=== PATIENT | female | born 1955 | race Caucasian/White ===

== ENCOUNTER 2024-04-02 14:35 | Emergency (ER) | payer MEDICARE, BC, SELFPAY ==
[2024-04-02 14:35] VITALS: BMI 28.1
[2024-04-02 14:40] VITALS: BP 133/78; PULSE 85; RESP 16; TEMP 36.8; O2SAT 99
--- NOTE | 2024-04-02 16:04 | XR_ITS ---
Examination: Knee, left , 3 views Technique: Knee AP, lateral, oblique 3 views Date and time of exam: April 02, 2024 1611 hrs. Indications: Injury to the knee today, knee pain. Findings: Comminuted acute fractures proximal tibia which extends to the lateral tibial plateau Minimal depression lateral tibial plateau Blood in the joint space Impression: Acute comminuted fractures proximal tibia extending to the tibial plateau laterally Recommend CT scan knee without contrast follow-up
--- NOTE | 2024-04-02 16:04 | XR_ITS ---
Examination: Shoulder,left, 3 views Technique: Shoulder AP internal rotation, AP external rotation, Y view shoulder, 3 views Exam date and time :April 02, 2024 1611 hrs. Indications: Injury to the shoulder today, shoulder pain. Findings: No shoulder fracture or dislocation No foreign body Impression: No shoulder fracture or dislocation
--- NOTE | 2024-04-02 16:49 | PD.EDLOWEX ---
Lower Extremity Injury RME/HPI General Chief Complaint: Extremity Injury, Lower Stated Complaint: LEFT KNEE INJURY TODAY Time Seen by Provider: 04/02/24 15:41 Source: patient and family Arrival date/time: 04/02/24 14:35 This is a 69-year-old female who presented to the emergency department with acute left knee pain status post a ground-level fall. Patient reports she was attempting to walk into the doorway when she did not noticed any within board on the floor causing her to fall forward landing on her left knee. Reports immediate pain to her left knee also hitting her left forearm. Reports immediately was unable to bear weight on the left knee due to pain prompting her ED visit today. Mode of arrival: ambulatory Related Data Home Medications ?Medication ?Instructions ?Recorded ?Confirmed atorvastatin 10 mg tablet (Lipitor) 10 mg PO QDAY 11/15/17 11/15/17 metformin 500 mg tablet,extended 500 mg PO QDAY 11/15/17 11/15/17 release 24 hr turmeric root extract 1,053 mg 1,053 mg PO QDAY 11/15/17 11/15/17 tablet vitB2 1.7 mg-niacin 20 mg-B6 2 1 ml QDAY 11/15/17 11/15/17 mg-B12 1.2 mg/mL-dexpan sublingual liqd (B Complex) Previous Rx's ?Medication ?Instructions ?Recorded meclizine 25 mg tablet See Rx Instructions .Route 11/15/17 .COMPLEX #30 tabs hydrocodone 5 mg-acetaminophen 325 1 tab PO Q6H PRN pain #14 tabs 11/30/22 mg tablet ibuprofen 600 mg tablet 600 mg PO Q6H PRN pain #30 tabs 11/30/22 hydrocodone 5 mg-acetaminophen 325 1 tab PO Q6H PRN pain #10 tabs 04/02/24 mg tablet Allergies Allergy/AdvReac Type Severity Reaction Status Date / Time No Known Allergies Allergy Verified 04/02/24 14:38 Review of Systems Review of Systems Systems Reviewed: All systems reviewed, normal except as documented Narrative Review of Systems: Gen: No fever, no chills, no weight loss EYES: No discharge, no visual changes, no pain HEENT: No ear pain, no congestion, no sore throat PULM: No shortness of breath, no cough, no congestion CV: No chest pain, no dyspnea on exertion, no palpitations GI: No nausea, no vomiting, no diarrhea, no pain, no constipation : No frequency, no urgency,? no dysuria Musc/skel:left knee and shoulder pain, no back pain Neuro: No weakness, no headache ED Exam Narrative Physical exam: General: Sittiing in Exam table in no acute distress, answering questions appropriately HENT: normocephalic, atraumatic, EOMI, PERRLA, moist mucous membranes Chest: chest wall is nontender Cardiac: regular rate and rhythm, normal S1 and S2, no murmurs, rubs, or gallops, capillary refill ?2 seconds Pulmonary: clear to auscultation bilaterally, no wheezing, crackles, or rhonchi Abdominal: active bowel sounds, soft, nontender, nondistended Neuro: A&OX3, CN II-XII intact, sensation grossly intact bilaterally in UE and LE. Skin: no rashes, no ecchymosis Ext: +left knee ecchymosis anterior swelling, tenderness to palpation Course Quality Measures none Orders Category Date Time Status Crutches .NOW Care 04/02/24 17:03 Completed Splint / Immobilizer STAT Care 04/02/24 17:03 Completed Consult to Orthopedic Stat Cons 04/02/24 17:50 Ordered XR knee LT 3V Stat Exams 04/02/24 16:04 Completed XR shoulder LT min 2V Stat Exams 04/02/24 16:04 Completed Vital Signs Vital signs: Vital Signs Temperature 98.3 F 04/02/24 14:40 Pulse Rate 85 04/02/24 14:40 Respiratory Rate 16 04/02/24 14:40 Blood Pressure 133/78 H 04/02/24 14:40 Pulse Oximetry (%) 99 04/02/24 14:40 Oxygen Delivery Method Room Air 04/02/24 14:40 Extremity Injury, Lower MDM Narrative MDM Narrative:: Healthy 69-year-old female presented to the emergency department with acute left knee pain. Injury sustained after a mechanical fall. X-ray did reveal a acute fracture of the tibia extending into her tibial plateau of her left extremity. I did contact the on-call orthopedic [phone] with Dr. Lewis on-call orthopedic who will gladly see patient in his office on Wednesday at 3 PM patient will be discharged home with a splint and knee brace. Patient data External records reviewed:: [facility] previous records Clinical information provided by:: patient Social determinants that could affect healthcare access:: none Patient has the following chronic illnesses:: none How is presenting disease/condition affected by chronic disease/condition?: no chronic disease Evaluation data The following diagnostics were reviewed and interpreted by me:: radiology exam(s) Lab and/or radiology exams considered but not ordered:: Not applicable Interpretation Summary: Examination: Shoulder,left, 3 views Technique: Shoulder AP internal rotation, AP external rotation, Y view shoulder, 3 views Exam date and time :April 02, 2024 1611 hrs. Indications: Injury to the shoulder today, shoulder pain. Findings: No shoulder fracture or dislocation No foreign body Impression: No shoulder fracture or dislocation Examination: Knee, left , 3 views Technique: Knee AP, lateral, oblique 3 views Date and time of exam: April 02, 2024 1611 hrs. Indications: Injury to the knee today, knee pain. Findings: Comminuted acute fractures proximal tibia which extends to the lateral tibial plateau Minimal depression lateral tibial plateau Blood in the joint space Impression: Acute comminuted fractures proximal tibia extending to the tibial plateau laterally Recommend CT scan knee without contrast follow-up Medications / Prescriptions Medications or Prescriptions considered but not ordered:: None Medication administrations:: None Consultations Consultation(s) initiated? (list below): No Diagnosis Extremity Injury, Lower Differential Diagnosis: other Most likely diagnosis given after review of the tests above:: Closed Fracture of the knee region Admission Indicated Admission indicated?: not indicated Explain why admission is indicated or not indicated:: None Admission Request Was there a request for admission?: No Disposition Plan Disposition Plan: Discharge Discharge Attestation Discharge Attestation: The patient and all family members were given an opportunity to ask questions and understood the discharge instructions. Discharge instructions specifically effects, indications for sooner follow up or return to the emergency department, and the expected course of current diagnosis. Patient condition: Stable Discharge Plan Plan Patient Disposition: HOME (Self Care) Patient condition on transfer: Stable Prescriptions/Referrals Prescriptions/Med Rec: New hydrocodone-acetaminophen 5-325 mg tablet 1 tab PO Q6H MDD 3 PRN (Reason: pain) Qty: 10 0RF No Action atorvastatin [Lipitor] 10 mg Tablet 10 mg PO QDAY metformin 500 mg Tablet Extended Release 24 Hr 500 mg PO QDAY vit [id number] [B Complex] 1.7-20-2-1.2 mg/mL Liquid 1 ml QDAY turmeric root extract 1,053 mg Tablet 1,053 mg PO QDAY meclizine 25 mg tablet See Rx Instructions .ROUTE .COMPLEX Qty: 30 0RF Rx Instructions: 1-2 tablets by mouth can be taken twice daily or 3 times daily as needed for vertigo hydrocodone-acetaminophen 5-325 mg tablet 1 tab PO Q6H MDD 4 PRN (Reason: pain) Qty: 14 0RF ibuprofen 600 mg tablet 600 mg PO Q6H PRN (Reason: pain) Qty: 30 0RF Referrals: Colt (PCP)Chance MD [Primary Care Provider] - In 1 week Daniel Lewis MD [Physician] - In 1 week Problem List Clinical Impression: Closed fracture of knee region Patient/Caregiver Discharge Instructions Discharge Activity: activity as tolerated Education Materials: ED Fracture, Knee Additional Instructions: - Your x-ray does not demonstrate any fracture. You are to wear the knee brace and use crutches. -I was able to get you an appointment with Dr. Lewis orthopedic here in [place] Wednesday at 3 PM Medications for pain were sent to the pharmacy. Return to the emergency department this any worsening symptoms or change in condition. Print Language: Trinidadian Stand Alone Forms: Katt Award Info., Work/School Release, Patient Portal Info Letter PA/ERICK Supervising Physician PA/ERICK Supervising Physician: Dr Ferrer
[2024-04-02 17:12] VITALS: BP 119/77; PULSE 79; RESP 18; TEMP 37.1; O2SAT 97
== END 2024-04-02 18:55 | disposition home or self-care (01) ==
PROVIDERS: Emergency Provider Emergency Medicine; PCP Family Medicine
DX: S82.252A Displaced comminuted fracture of shaft of left tibia, initial encounter for closed fracture (principal); W18.30XA Fall on same level, unspecified, initial encounter; M25.512 Pain in left shoulder
CPT/HCPCS: 73030; 73562; 99283

== ENCOUNTER → 2024-05-16 | Outpatient (CLI) | payer MEDICARE, BC, SELFPAY ==
--- NOTE | 2024-05-16 09:19 | XR_ITS ---
Examination: Knee, left , 3 views Technique: Knee AP, lateral, oblique 3 views Date and time of exam: May 16, 2024 0924 hrs. Indications: Acute fracture proximal tibia extending to the lateral tibial plateau on plain films April 02, 2024, postop reduction internal fixation tibial fracture Findings: Postop reduction internal fixation fracture proximal tibia including the proximal medial tibial metaphyseal region and below the intercondylar spines extending to the lateral tibial plateau Satisfactory alignment Orthopedic hardware satisfactory position Impression: Postop reduction internal fixation fracture proximal tibia with satisfactory alignment
== END | disposition home or self-care (01) ==
LOC: CDIM 09:08
PROVIDERS: PCP Family Medicine; Referring Provider Orthopaedic Surgery; Visit Provider Orthopaedic Surgery
DX: S82.142D Displaced bicondylar fracture of left tibia, subsequent encounter for closed fracture with routine healing (principal); X58.XXXD Exposure to other specified factors, subsequent encounter
CPT/HCPCS: 73562

== ENCOUNTER → 2024-06-06 | Outpatient (CLI) | payer MEDICARE, BC, SELFPAY ==
--- NOTE | 2024-06-06 14:20 | XR_ITS ---
Examination: Bone densitometry Date and time of exam:June 06, 2024 1441 hours INDICATIONS: Menopause age 53, history postmenopausal humerus patella tibia fractures, family history, mother, osteoporosis, personal history osteopenia Technique: Lumbar spine and hip total bone mineralization values of an calculated. Peak reference and age match control results have been displayed. Findings: Lumbar spine total bone mineralization is1.065 gm/cm2. This is 0.2 standard deviations above peak reference. This is 2.1 standard deviations above age-matched controls. Hip total bone mineralization is 0.834 gm/cm2 This is 0.9 standard deviations below peak reference. This is 0.5 standard deviations above age-matched controls Impression: There is normal mineralization based on lumbar spine measurements. There is osteopenia based on hip measurements Lumbar mineralization is decreased 4.1% compared with August 03, 2017 Hip mineralization is increase 6.5% compared with August 03, 2017
== END | disposition home or self-care (01) ==
LOC: CDIM 13:54
PROVIDERS: Referring Provider Family Medicine; Visit Provider Family Medicine
DX: M85.89 Other specified disorders of bone density and structure, multiple sites (principal)
CPT/HCPCS: 77080

== ENCOUNTER → 2024-09-07 | Outpatient (CLI) | payer MEDICARE, BC, SELFPAY ==
[2024-09-07 10:50] LABS: Basophils # (Auto) 0.1 Thou/mm3 (0.0-0.2); Basophils % (Auto) 1 % (0-2.5); Eosinophils # (Auto) 0.2 Thou/mm3 (0.0-0.5); Eosinophils % (Auto) 4 % (0-10); Hematocrit 38.5 % (36.0-46.0); Hemoglobin 12.5 g/dL (12.0-16.0); Immature Granulocytes % (Auto) 0 % (0-0); Immature Granulocytes Auto 0.02 Thou/mm3 (0.00-0.00); Lymphocytes # (Auto) 1.4 Thou/mm3 (1.0-4.8); Lymphocytes % (Auto) 26 % (10-50); Mean Corpuscular HGB Conc 32.5 g/dl (31.0-37.0); Mean Corpuscular Hemoglobin 28.6 pg (25.0-35.0); Mean Corpuscular Volume 88 fL (80-100); Monocytes # (Auto) 0.5 Thou/mm3 (0.0-0.8); Monocytes % (Auto) 9 % (0-12); Neutrophils # (Auto) 3.1 Thou/mm3 (1.8-7.7); Neutrophils % (Auto) 60 % (37-80); Nucleated Red Blood Cell % 0 /100 WBC (0); Platelet Count 250 Thou/mm3 (140-440); RDW Standard Deviation 48.4 fL (36.4-46.3); Red Blood Count 4.37 Miln/mm3 (4.00-5.20); White Blood Count 5.2 Thou/mm3 (3.6-11.0)
[2024-09-07 11:00] LABS: Glucose Estimated Average 120 mg/dL (80-131); Hemoglobin A1C 5.8 % Hgb (4.8-6.0)
[2024-09-07 11:03] LABS: Collection Type, Urine Clean Catch
[2024-09-07 11:05] LABS: Vitamin D 25 Hydroxy Total 44.4 ng/mL (7.3-40.2)
[2024-09-07 11:32] LABS: Alanine Aminotransferase 19 U/L (10-49); Albumin, Serum 4.3 gm/dL (3.4-4.8); Albumin/Globulin Ratio 1.7 (1.2-2.2); Alkaline Phosphatase 83 U/L (46-116); Anion Gap 7 (7-16); Aspartate Amino Transferase 24 U/L (0-34); BUN/Creatinine Ratio 17 Ratio (12-20); Bilirubin,Total 1.2 mg/dL (0.3-1.2); Blood Urea Nitrogen 15 mg/dL (9-23); Calcium 9.6 mg/dL (8.3-10.6); Calcium (Corrected) 9.6 mg/dL (8.5-10.1); Carbon Dioxide 24.6 mMol/L (20.0-31.0); Cardiac Risk Estimate 3.1 RATIO (3.7-5.6); Chloride 106 mMol/L (98-107); Cholesterol 178 mg/dL (132-200); Creatinine (Component) 0.9 mg/dL (0.6-1.3); Globulin 2.5 gm/dL (2.3-3.5); Glucose 100 mg/dL (74-106); HDL Cholesterol 58 mg/dL (40-60); LDL Cholesterol,Calculated 107 mg/dL (0-130); Osmolality,Calculated 276 (275-295); Potassium 5.1 mMol/L (3.4-5.1); Sodium 138 mMol/L (136-145); Thyroid Stimulating Hormone 1.16 uIU/mL (0.55-4.78); Total Protein 6.8 gm/dL (5.7-8.2); Triglycerides 67 mg/dL (30-150); eGFR > 60 See Note
[2024-09-07 11:41] LABS: Bacteria,Urine Rare; Bilirubin,Urine Negative (Negative); Blood,Urine Negative (Negative); Clarity,Urine Clear (Clear/Hazy); Color,Urine Colorless (Lt Yel-Yel); Glucose, Urine Negative (Negative); Ketones,Urine Negative (Negative); Leukocyte Esterase,Urine Negative (Negative); Nitrite,Urine Positive (Negative); PH,Urine 6.5 (5.0-7.0); Protein,Urine Negative (Neg - Trace); RBC,Urine 1 /hpf (0-3); Specific Gravity,Urine 1.006 (1.001-1.035); Squamous Epithelial Cell,Urine < 1 /hpf (0-5); Urobilinogen,Urine Negative mg/dL (0.0-1.0); WBC,Urine 3 /hpf (0-5)
[2024-09-07 11:45] LABS: Creatinine MALB Rnd Ur 26 mg/dL (30-125); Microalbumin, Random Urine < 3 mg/L (0-300)
== END | disposition home or self-care (01) ==
LOC: COPL 09:22
PROVIDERS: PCP Family Medicine; Referring Provider Family Medicine; Visit Provider Family Medicine
DX: Z00.00 Encounter for general adult medical examination without abnormal findings (principal); Z13.220 Encounter for screening for lipoid disorders; Z13.21 Encounter for screening for nutritional disorder; Z13.29 Encounter for screening for other suspected endocrine disorder; Z13.0 Encounter for screening for diseases of the blood and blood-forming organs and certain disorders involving the immune mechanism
CPT/HCPCS: 36415; 80053; 80061; 81001; 82043; 82306; 82570; 83036; 84443; 85025; 87077; 87086; 87186

== ENCOUNTER → 2024-09-13 | Outpatient (CLI) | payer MEDICARE, BC, SELFPAY ==
[2024-09-18 07:21] LABS: Fecal Globin Result NOT DETECTED (NOT DETECTED)
== END | disposition home or self-care (01) ==
LOC: SLDO 10:22
PROVIDERS: PCP Family Medicine; Referring Provider Family Medicine; Visit Provider Family Medicine
DX: Z12.11 Encounter for screening for malignant neoplasm of colon (principal)
CPT/HCPCS: 82274; G0328

== ENCOUNTER → 2024-09-15 | Outpatient (CLI) | payer MEDICARE, BC, SELFPAY ==
--- NOTE | 2024-09-15 09:30 | XR_ITS ---
Examination: Screening digital mammography, bilateral Computer aided detection 3-D breast Tomosynthesis, bilateral Date and time of exam: September 15, 2024 0926 hours Compared to mammograms dating to August 03, 2017 Indication: Screening Technique: Nonmagnified MLO, CC views of the breasts to been obtained, reconstructed from 3-D Tomosynthesis images. R2 computer aided detection program utilized for evaluation of suspicious masses and/or abnormal calcifications. 3-D Tomosynthesis images obtained. Findings: Scattered areas of fibroglandular density. Benign calcifications. No interval suspicious masses Impression: BI-RADS category II: Benign Findings. Recommend 1 year follow-up mammogram.
== END | disposition home or self-care (01) ==
LOC: CDIM 09:19
PROVIDERS: Referring Provider Family Medicine; Visit Provider Family Medicine
DX: Z12.31 Encounter for screening mammogram for malignant neoplasm of breast (principal); R92.323 Mammographic fibroglandular density, bilateral breasts; R92.1 Mammographic calcification found on diagnostic imaging of breast
CPT/HCPCS: 77063; 77067

== ENCOUNTER 2024-10-07 20:50 | Emergency (ER) | payer MEDICARE, BC, SELFPAY ==
[2024-10-07 20:50] VITALS: BMI 27.3
[2024-10-07 22:21] VITALS: BP 124/78; PULSE 93; RESP 18; TEMP 36.9; O2SAT 96
--- NOTE | 2024-10-07 22:54 | PD.EDSKIN ---
ED Skin Abcess FB-RME/HPI General Chief complaint: Skin/Abscess/Foreign Body Stated complaint: SPIDER BITE BACK OF RIGHT LEG Arrival date/time: 10/07/24 20:50 Mode of arrival: ambulatory Limitations: no limitations RME / HPI RME / HPI narrative: DR. VILLEDA?S MAIN ED EVALUATION: 69-year-old female with history of Hypercholesterolemia and Diabetes Mellitus Type 2 presenting to the emergency department via private auto who is presenting for chief complaint of RLE with blister, puffiness, and clear discharge. Patient reports having the same symptoms 1 week ago down lower on the leg. Patient suspects it may be an insect bite. Patient denies any other associated symptoms or medical complaints. - PMH: Type II DM, Hypercholesterolemia - PSH: Tubal Ligation - Social history: Denies - Current medications: Reviewed PCP is MD AGATHA Gregory complaint: insect bite/sting Location: RLE Context: none Associated symptoms: denies other symptoms Related Data Home Medications ?Medication ?Instructions ?Recorded ?Confirmed atorvastatin 10 mg tablet (Lipitor) 10 mg PO QDAY 11/15/17 11/15/17 metformin 500 mg tablet,extended 500 mg PO QDAY 11/15/17 11/15/17 release 24 hr turmeric root extract 1,053 mg 1,053 mg PO QDAY 11/15/17 11/15/17 tablet vitB2 1.7 mg-niacin 20 mg-B6 2 1 ml QDAY 11/15/17 11/15/17 mg-B12 1.2 mg/mL-dexpan sublingual liqd (B Complex) Previous Rx's ?Medication ?Instructions ?Recorded meclizine 25 mg tablet See Rx Instructions .Route 11/15/17 .COMPLEX #30 tabs hydrocodone 5 mg-acetaminophen 325 1 tab PO Q6H PRN pain #14 tabs 11/30/22 mg tablet ibuprofen 600 mg tablet 600 mg PO Q6H PRN pain #30 tabs 11/30/22 hydrocodone 5 mg-acetaminophen 325 1 tab PO Q6H PRN pain #10 tabs 04/02/24 mg tablet clindamycin HCl 300 mg capsule 300 mg PO Q6H 10 days #40 caps 10/07/24 Allergies Allergy/AdvReac Type Severity Reaction Status Date / Time No Known Allergies Allergy Verified 04/02/24 14:38 Review of Systems Review of Systems Systems Reviewed: All systems reviewed, normal except as documented Integumentary/Breasts Skin/Breast: Reports new lesions (Blister, clear discharge, puffiness) Past Medical History Past Medical History CARDIAC: Positive Cardiac Disorders (High cholesterol) and Hypercholesterolemia ENDOCRINE: Positive Diabetes Mellitus Type 2 Surgical History SURGICAL: Positive Tubal Ligation ED Exam General Limitations: Present no limitations Head Head exam: Present atraumatic, normocephalic and normal inspection Eye Eye exam: Present normal appearance, PERRL and EOMI; Absent nystagmus ENT ENT exam: Present normal exam, normal oropharynx, mucous membranes moist and TM's normal bilaterally Neck Neck exam: Present normal inspection, full ROM and trachea midline; Absent tenderness Chest Chest inspection: Present normal inspection and symmetric chest wall rise; Absent tenderness or rash Respiratory Respiratory exam: Present normal lung sounds bilaterally; Absent respiratory distress, wheezes or stridor Cardiovascular Cardiovascular exam: Present regular rate, normal rhythm and normal heart sounds; Absent gallop Abdominal Exam Abdominal exam: Present soft and normal bowel sounds; Absent distention, tenderness, guarding, rebound or rigidity Extremities Exam Extremities exam: Present full ROM and other (RLE with erythema, irregular shaped) Back Exam Back exam: Present normal inspection and full ROM; Absent tenderness or paraspinal tenderness Neurological Exam Neurological exam: Present alert, oriented X3, CN II-XII intact and normal gait Psychiatric Psychiatric exam: Present normal affect and normal mood; Absent depressed, agitated or anxious Skin Skin exam: Present warm, dry and intact Course Quality Measures none Orders Category Date Time Status Clindamycin Vial [Cleocin vial] Med 10/07/24 22:52 Discontinued 600 mg IM X1 ONE Vital Signs Vital signs: Vital Signs Temperature 98.5 F 10/07/24 22:21 Pulse Rate 93 10/07/24 22:21 Respiratory Rate 18 10/07/24 22:21 Blood Pressure 124/78 10/07/24 22:21 Pulse Oximetry (%) 96 10/07/24 22:21 Oxygen Delivery Method Room Air 10/07/24 22:21 Skin / Abscess / Foreign Body MDM Narrative MDM Narrative:: Scribe Attestation: 10/07/2024 Kay Davis am scribing for and in the presence of Dr. Villeda. Provider Notation: Although this document has been carefully reviewed, there may still be some phonetic and other typographical errors.? These errors are purely grammatical due to imperfections in the software program and should not be construed in any way to compromise the substance of the patient's medical care during this visit. 69-year-old female with history of Hypercholesterolemia and Diabetes Mellitus Type 2 presenting to the emergency department via private auto who is presenting for chief complaint of RLE with blister, puffiness, and clear discharge. ROS: RLE with blister, puffiness, and clear discharge. EDC: Differential diagnoses include lymphadenitis, abscess, cellulitis. Patient data External records reviewed:: [facility] previous records (Reviewed prior ED records from 04/02/24. Patient was seen for Closed fracture of knee region.) Clinical information provided by:: patient Social determinants that could affect healthcare access:: none Patient has the following chronic illnesses:: Hypercholesterolemia and Diabetes Mellitus Type 2 How is presenting disease/condition affected by chronic disease/condition?: uneffected by Evaluation data The following diagnostics were reviewed and interpreted by me:: other (specify) (N/A) Lab and/or radiology exams considered but not ordered:: None Interpretation Summary: N/A Medications / Prescriptions Medications or Prescriptions considered but not ordered:: None Medication administrations:: Medication Administration History Discontinued Medications Clindamycin Phosphate (Clindamycin Phos Inj 150 Mg/Ml Vial 6 Ml) 600 mg IM X1 ONE Stop: 10/07/24 22:53 Last Admin: 10/07/24 23:02 Dose: 600 mg Documented By: KF See above if any Consultations Consultation(s) initiated? (list below): No Diagnosis Skin/Abscess Differential Diagnosis: cellulitis and other (abscess, lymphadenitis) Most likely diagnosis given after review of the tests above:: Cellulitis Admission Indicated Admission indicated?: not indicated Explain why admission is indicated or not indicated:: Does not meet admission criteria Admission Request Was there a request for admission?: No Disposition Plan Disposition Plan: Discharge Discharge Attestation Discharge Attestation: The patient and all family members were given an opportunity to ask questions and understood the discharge instructions. Discharge instructions specifically effects, indications for sooner follow up or return to the emergency department, and the expected course of current diagnosis. Patient condition: Stable Discharge Plan Plan Patient Disposition: HOME (Self Care) Patient condition on transfer: Stable Prescriptions/Referrals Prescriptions/Med Rec: New clindamycin HCl 300 mg capsule 300 mg PO Q6H 10 Days Qty: 40 0RF No Action atorvastatin [Lipitor] 10 mg Tablet 10 mg PO QDAY metformin 500 mg Tablet Extended Release 24 Hr 500 mg PO QDAY vit [id number] [B Complex] 1.7-20-2-1.2 mg/mL Liquid 1 ml QDAY turmeric root extract 1,053 mg Tablet 1,053 mg PO QDAY meclizine 25 mg tablet See Rx Instructions .ROUTE .COMPLEX Qty: 30 0RF Rx Instructions: 1-2 tablets by mouth can be taken twice daily or 3 times daily as needed for vertigo hydrocodone-acetaminophen 5-325 mg tablet 1 tab PO Q6H MDD 4 PRN (Reason: pain) Qty: 14 0RF ibuprofen 600 mg tablet 600 mg PO Q6H PRN (Reason: pain) Qty: 30 0RF hydrocodone-acetaminophen 5-325 mg tablet 1 tab PO Q6H MDD 3 PRN (Reason: pain) Qty: 10 0RF Referrals: Colt (PCP)hCance MD [Primary Care Provider] - In 1 week Problem List Clinical Impression: Cellulitis Patient/Caregiver Discharge Instructions Education Materials: Discharge Instructions for Cellulitis Additional Instructions: Please take antibiotics as prescribed. Turn to emergency department for worsening symptoms, or any other concerns. If your sugars greater than 300 you need to return to emergency room. Use the warm compresses as we discussed. DISCHARGE INSTRUCTIONS - ADULTS Even though you have been discharged from the Emergency Department, there are several things that you should do to ensure that you receive proper care: 1. DO READ your discharge instructions as these contain important information concerning your medical care. 2. If medication has been prescribed for your condition, fill the prescription as soon as possible and follow the directions on the medication. 3. RETURN AT ONCE TO THE EMERGENCY DEPARTMENT if you have any problems or concerns. These include but are not limited to fever, worsening pain(belly, chest, head, etc?), worsening shortness of breath, uncontrollable bleeding, inability to tolerate food and water, or any condition that makes you question your well-being. Also, if your symptoms do not improve in the next 12-24 hours, return to the ER or seek medical care immediately. 4. Be sure to follow up with your regular physician or specialist as instructed at discharge as this is the best way to ensure that you receive the very best of care. If you do not have a primary care physician, please contact a physician group and make an appointment. 5. Please visit [facility] for coupons regarding your prescriptions. It is a free service for you to use and can help reduce the cost of your medication. We would like to thank you for coming today and our hope is that we served you and your family well during your stay. Print Language: Divehi Stand Alone Forms: Katt Award Info., Patient Portal Info Letter
[2024-10-07] MEDS: CLINDAMYCIN PHOS INJ 150 MG/ML VIAL 6 ML 600 MG IM (23:02)
== END 2024-10-07 23:11 | disposition home or self-care (01) ==
PROVIDERS: Emergency Provider Emergency Medicine; PCP Family Medicine
DX: L03.115 Cellulitis of right lower limb (principal); E11.9 Type 2 diabetes mellitus without complications; E78.00 Pure hypercholesterolemia, unspecified
CPT/HCPCS: 96372; 99283; J0736

== ENCOUNTER → 2024-12-26 | Outpatient (CLI) | payer MEDICARE, BC, SELFPAY ==
[2024-12-26 09:43] LABS: Glucose Estimated Average 126 mg/dL (80-131); Hemoglobin A1C 6.0 % Hgb (4.8-6.0)
== END | disposition home or self-care (01) ==
LOC: COPL 08:22
PROVIDERS: PCP Family Medicine; Referring Provider Family Medicine; Visit Provider Family Medicine
DX: E11.9 Type 2 diabetes mellitus without complications (principal)
CPT/HCPCS: 36415; 83036